=== PATIENT | female | born 1960 | race Two or more races ===

== ENCOUNTER 2023-12-03 08:27 | Outpatient (CLI) | payer MEDICAID | END 2023-12-03 23:59 | disposition home or self-care (01) | LOC: RAD 08:27 | PROVIDERS: ATTEND Physician Assistant | DX: I73.9 Peripheral vascular disease, unspecified (principal); R09.89 Other specified symptoms and signs involving the circulatory and respiratory systems; I83.93 Asymptomatic varicose veins of bilateral lower extremities | CPT/HCPCS: 93880; 93970 ==

== ENCOUNTER 2024-12-19 12:11 | Outpatient (CLI) | payer MEDICAID ==
--- NOTE | 2024-12-19 15:53 | RADIOLOGY REPORT ---
Limited pelvic ultrasound CLINICAL HISTORY: DECREASED URINE OUTPUT TECHNIQUE: Multiple grayscale ultrasound images were obtained of the pelvis to evaluate the urinary b ladder. Limited color Doppler and spectral Doppler acquisitions were also obtained. COMPARISON: None FINDINGS: Urinary bladder: Prevoid volume is 188.4 and postvoid bladder is 0 mL. The ureteral jets were not ob served. No bladder wall thickening. Incidentally the uterus is enlarged measuring 17.6 x 8.9 x 12.8 cm. IMPRESSION: 1. Unremarkable urinary bladder. 2. Enlarged uterus. The uterus is not directly evaluated on this examination. The enlargement could be due to the presence of fibroids. This could be further evaluated with a nonemergent/outpatient tr ansabdominal and transvaginal pelvic ultrasound if clinically indicated.
== END 2024-12-19 23:59 | disposition home or self-care (01) ==
LOC: RAD 12:11
PROVIDERS: ATTEND Family Medicine
DX: R34 Anuria and oliguria (principal); N85.2 Hypertrophy of uterus
CPT/HCPCS: 76857